=== PATIENT | female | born 1980 | race Caucasian/White ===

== ENCOUNTER 2019-04-25 08:56 | Outpatient (CLI) | payer OTHER, SELFPAY ==
--- NOTE | ~2019-04-25 | US_ITS ---
EXAMINATION: US right upper quadrant EXAM DATE: 04/25/2019 09:31 INDICATION: Abdominal pain. TECHNIQUE: Multiple grayscale and Doppler images of the abdomen right upper quadrant were obtained (steve y a technologist who performed the scan) and subsequently reviewed. There is no prior study for angela rivas. FINDINGS: The pancreatic head and body are normal in appearance. The pancreatic tail is not visualized. The l iver has normal echogenicity and contour. There are no focal liver lesions identified. There is no evidence of intrahepatic biliary duct dilation. Portal venous flow was seen in the hepatopedal, nor mal direction and has normal Doppler waveform. No right-sided hydronephrosis. Common bile duct measures 3 mm, which is normal. The gallbladder wall is normal in thickness, with ex pected amount of distention. No sonographic evidence of pericholecystic fluid. There is no cholelit hiases. Technologist performing exam reports patient did not demonstrate sonographic Horowitz's sign. Please note that this sign is less reliable in patients who have received pain medication. IMPRESSION: 1. Unremarkable abdominal ultrasound exam. Reviewed, dictated and finalized at location B. [employer]ER
== END 2019-04-25 08:57 | disposition home or self-care (01) ==
PROVIDERS: PCP Internal Medicine; Visit Provider Internal Medicine
DX: R10.9 Unspecified abdominal pain (principal)
CPT/HCPCS: 76705

== ENCOUNTER 2024-01-29 14:00 | Outpatient (RCR) | payer OTHER, SELFPAY ==
--- NOTE | 2024-01-29 15:59 | PTOPEVAL1 ---
Assessment and note entered by Isabelle Echavarria DPT Evaluation Information Assessment Status Evaluation Diagnosis L shoulder pain ICD-10 Condition Codes (PT) M25.512 Onset 01/09/24 Subjective Information Patient reports last January she was doing a procedure at work and she over stretched her arm but had to complete the procedure. 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 She reports due to family health issues she just saw an MD and was very weak in that shoulder. 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 She reports her MD wrote a note for her not to complete the procedure. She also reports she had an MRI that showed fluid on the bursa. She reports pain is worse with lifting, opening nebulizers at work, pulling syringes, and pushing/pulling. She reports pain travels and will sometimes cause her hand to go numb. Reported Pain Level Pain Score 4: Self Report Assessment PT Clinical Summary Mrs. Mahajan is a 43 year old female who presents to PT with L shoulder pain. She demonstrates decreased L shoulder ROM, decreased L shoulder strength and pain with reaching over head, pushing /pulling, and lifting objects around the home . She would benefit from skilled PT to address impairments and return to PLOF. Plan of Care Interventions Electrical Stimulation,Hot Pack/Cold Pack,Manual Therapy,Neuro Re-education,Patient/Caregiver Educati,Therapeutic Activities,Therapeutic Exercise PT Services Indicated Yes Treatment Frequency and 2x weekly for 10 visits Duration These treatments will address the objective and functional deficits as defined above. The patient will be advanced safely and appropriately in order for the patient to progress towards his/her prior level of function. Additional exercises will be introduced and as well as a comprehensive home exercise program upon discharge, if needed, ?to ensure carryover of functional gains achieved in the clinic. This treatment plan has been reviewed and agreement upon by the patient.
--- NOTE | 2024-03-10 16:41 | PCPTNOTE ---
I reviewed the License Pending Therapist's documentation and agree with the findings.
--- NOTE | 2024-03-17 15:30 | PTOPPROG ---
Assessment and note entered by Jeremiah Perea Evaluation Information Assessment Status Progress Diagnosis L shoulder pain ICD-10 Condition Codes (PT) Pain in left shoulder M25.512 Onset 01/09/24 Subjective Information Pt. reports that her left shoulder is doing better . She notices little to no pain at the shoulder itself and pain with u.e. movement is less. She reports that more pain is localized to the neck and notices some symptoms of weakness and numbness into the arms She is having trouble with described fine motor gripping tasks at work, making her job difficult. She describes continued use of the medication to reduce pain. She reports she meets with pain management next week and is anticipating injections. Assessment PT Clinical Summary Pt. has met all goals in regards to shoulder mobility and strength. She continues to present with postural deformity and reduction in c-spine mobility. At this time she will return to the doctor for consult regarding injections into the c -spine. Given her continued pain we will hold treatment till after injections to help improve comfort to allow the pt. to be able to advance her program to focus more on core strength. Plan of Care Interventions Electrical Stimulation,Hot Pack/Cold Pack,Manual Therapy,Mechanical Traction,Neuro Re-education, Patient/Caregiver Education,Therapeutic Activities ,Therapeutic Exercise,Self-Care/Home Management PT Services Indicated Yes Treatment Frequency and 2x/week x 8 visits Duration These treatments will address the objective and functional deficits as defined above. The patient will be advanced safely and appropriately in order for the patient to progress towards his/her prior level of function. Additional exercises will be introduced and as well as a comprehensive home exercise program upon discharge, if needed, ?to ensure carryover of functional gains achieved in the clinic. This treatment plan has been reviewed and agreement upon by the patient.
== END 2024-04-28 23:59 | disposition home or self-care (01) ==
LOC: CHSPT 14:00
DX: M25.512 Pain in left shoulder (principal); G89.29 Other chronic pain
CPT/HCPCS: 97012; 97014; 97110; 97140; 97161; G0283